=== PATIENT | female | born 1995 | race African-American/Black ===

== ENCOUNTER 2024-10-31 09:26 | Emergency (ER) | payer SELFPAY ==
[~2024-10-31] VITALS: Ht 162.6 cm; Wt 116.6 kg
[2024-10-31 09:33] VITALS: TEMP 97.8
[2024-10-31] MEDS ORDERED: VENTOLIN HFA18 GM INH (10:01)
[2024-10-31] MEDS ORDERED: OZEMPIC1 MG/0.71 PO (10:01)
[2024-10-31] MEDS: SODIUM CHLORIDE 0.9% 1000ML 1,000 ML IV SCH (10:22)
[2024-10-31 10:51] VITALS: PULSE 94; RESP 18; O2SAT 100
== END 2024-10-31 10:51 | disposition home or self-care (01) ==
LOC: FSED 09:29
DX: R00.2 Palpitations (principal); R00.0 Tachycardia, unspecified; R19.7 Diarrhea, unspecified; E86.0 Dehydration; R94.31 Abnormal electrocardiogram [ECG] [EKG]
CPT/HCPCS: 80053; 82553; 84484; 85025; 85379; 93005; 99284; J7030